=== PATIENT | female | born 1955 | race Caucasian/White ===

== ENCOUNTER 2019-03-27 22:05 | Emergency (ER) | payer SELFPAY ==
[2019-03-27 22:13] VITALS: RESP 18
--- NOTE | 2019-03-27 22:45 | ED PDOC ---
HPI: General Adult Time Seen by Provider: 03/27/19 22:21 Chief Complaint (Nursing): Foreign Body History Per: Patient Additional Complaint(s): Pt. presents with son and states at approximately 2120 pt. took her Montelukast pill and she felt as if the pill became stuck in her throat. Pt. states she drank water and ate a banana and symptoms improved but foreign body sensation is still present. Denies SOB, chest pain. Past Medical History Reviewed: Historical Data, Nursing Documentation, Vital Signs Vital Signs: Last Vital Signs Temp 97.9 F 03/27/19 22:10 Pulse 105 H 03/27/19 22:10 Resp 18 03/27/19 22:10 BP 154/87 H 03/27/19 22:10 Pulse Ox 100 03/27/19 22:10 Primary Care Provider: FAMILY PROVIDER,NO - Family History Family History: States: No Known Family Hx - Allergies Allergies/Adverse Reactions: Allergies Allergy/AdvReac Type Severity Reaction Status Date / Time No Known Allergies Allergy Verified 03/27/19 22:10 Review of Systems ROS Statement: Except As Marked, All Systems Reviewed And Found Negative ENT: Positive for: Throat Pain Physical Exam - Physical Exam Appears: Positive for: Well, Non-toxic, No Acute Distress Skin: Positive for: Normal Color, Warm. Negative for: Rash Eye Exam: Positive for: Normal appearance ENT: Positive for: Normal ENT Inspection Cardiovascular/Chest: Positive for: Regular Rate, Rhythm Respiratory: Positive for: Normal Breath Sounds. Negative for: Stridor, Respiratory Distress Gastrointestinal/Abdominal: Positive for: Soft. Negative for: Tenderness Neurological/Psych: Positive for: Awake, Alert, Oriented (x3) - ECG O2 Sat by Pulse Oximetry: 100 - Radiology X-Ray: Read By Radiologist (Soft tissue neck x-ray) X-Ray Interpretation: No Acute Disease - Progress ED Course And Treament: Viscous lidocaine 15ml PO ordered. Pt. reports good relief of FB sensation. No distress. Speaking in full sentences. Disposition - Clinical Impression Clinical Impression: Globus syndrome - Patient ED Disposition Is Patient to be Admitted: No - Disposition Referrals: [facility] [Outside] Disposition: Routine/Home Disposition Time: 23:41 Condition: IMPROVED Additional Instructions: Return to ED immediately if symptoms worsen. DAMIAN ABBASI, thank you for letting us take care of you today. Your provider was Joseline Bowens MD and you were treated for COMPROMISED AIRWAY. The emergency medical care you received today was directed at your acute symptoms. If you were prescribed any medication, please fill it and take as directed. It may take several days for your symptoms to resolve. Return to the Emergency Department if your symptoms worsen, do not improve, or if you have any other problems. Please contact your doctor or call one of the physicians/clinics you have been referred to that are listed on the Patient Visit Information form that is included in your discharge packet. Bring any paperwork you were given at discharge with you along with any medications you are taking to your follow up visit. Our treatment cannot replace ongoing medical care by a primary care provider outside of the emergency department. Thank you for allowing the [facility] team to be part of your care today. Instructions: General (DC) Forms: [employer] (Dutch)
[2019-03-27 23:51] VITALS: BP 145/75; PULSE 85; TEMP 98.7; O2SAT 99
--- NOTE | 2019-03-28 17:47 | RAD ---
Date of service: 03/27/2019 HISTORY: X-ray soft tissue neck COMPARISON: No comparison available. TECHNIQUE: 2 views obtained. AP and lateral radiographs are submitted. FINDINGS: The tracheal air column is midline in position. There is no retropharyngeal soft tissue swelling. The epiglottis is normal in appearance. There is no radiopaque foreign body. IMPRESSION: No radiopaque foreign body identified. The preliminary findings for this examination were reported by [facility] at 11:20 p.m. on 03/27/2019. There is concurrence of this report with the preliminary findings.
== END 2019-03-27 23:45 | disposition home or self-care (01) ==
LOC: H.ER 22:05
DX: F45.8 Other somatoform disorders (principal)